=== PATIENT | female | born 1945 | race Two or more races ===

== ENCOUNTER 2021-02-24 21:34 | Emergency (ER) | payer MEDICARE, OTHER ==
[~2021-02-24] VITALS: Ht 152.4 cm; Wt 43.5 kg
[2021-02-25] MEDS ORDERED: HYDROcodone-ACET 5/325MG TAB PO ONE (01:30)
[2021-02-25] MEDS ORDERED: ONDANSETRON ODT 4 MG TAB PO ONE (01:45)
[2021-02-25 01:53] VITALS: BP 178/69
[2021-02-25] MEDS ORDERED: LIDOCAINE 5% TOPICAL PATCH TOP ONE ×2 (02:16→02:30)
== END 2021-02-25 02:30 | disposition home or self-care (01) ==
LOC: EDBD 21:34 → ER 21:34
DX: S42.391A Other fracture of shaft of right humerus, initial encounter for closed fracture (principal); W01.0XXA Fall on same level from slipping, tripping and stumbling without subsequent striking against object, initial encounter; Y93.89 Activity, other specified; Y92.89 Other specified places as the place of occurrence of the external cause; Y99.8 Other external cause status
CPT/HCPCS: 73030; 99284; Q0162